=== PATIENT | male | born 1950 | race African-American/Black ===

== ENCOUNTER 2022-04-09 23:07 | Emergency (ER) | payer OTHER ==
[~2022-04-09] VITALS: Ht 170.2 cm; Wt 68.0 kg
[2022-04-10] MEDS ORDERED: ACETAMINOPHEN 325MG TABLET PO ONE (02:15)
[2022-04-10] MEDS ORDERED: ACETAMINOPHEN 325MG TABLET PO NR (04:00)
[2022-04-10] MEDS ORDERED: KETOROLAC 30MG/ML VIAL IV ONE (05:45)
[2022-04-10 06:30] VITALS: BP 135/78
== END 2022-04-10 06:43 | disposition home or self-care (01) ==
LOC: ER 23:07
DX: R51.9 Headache, unspecified (principal); I10 Essential (primary) hypertension
CPT/HCPCS: 70450; 96374; 99285; J1885